=== PATIENT | male | born 1990 | race Caucasian/White ===

== ENCOUNTER → 2022-12-26 09:37 | Outpatient (BNVA) | payer MEDICAID, SELFPAY | PROVIDERS: Visit Provider Podiatrist Foot & Ankle Surgery | DX: M21.612 Bunion of left foot (principal); M20.42 Other hammer toe(s) (acquired), left foot; M21.42 Flat foot [pes planus] (acquired), left foot | CPT/HCPCS: 73630; 99204 ==